=== PATIENT | female | born 1985 | race Caucasian/White ===

== ENCOUNTER 2017-01-02 16:56 | Emergency (ER) | payer MEDICAID, OTHER ==
[~2017-01-02] VITALS: Ht 167.6 cm; Wt 102.0 kg
[~2017-01-02 16:56] MED LIST: CITA20TA4 PO; LORA1TAB PO; PERC7.5T13 PO; REST30CA PO
[2017-01-02 16:59] VITALS: BP 128/83; PULSE 77; RESP 15; TEMP 98.6; O2SAT 98
[2017-01-02] MEDS ORDERED: TRAZ50TA12 PO (17:52)
[2017-01-02] MEDS ORDERED: LORA1TAB12 PO (17:52)
[2017-01-02] MEDS ORDERED: CITA40TA4 PO (17:52)
--- NOTE | 2017-01-02 18:08 | PD ---
HPI Chief Complaint: Fall Time Seen by Provider: 17:56 Travel History International Travel<30 days: No Contact w/Intl Traveler<30days: No Traveled to known affect area: No History of Present Illness HPI 31-year-old female complains of neck pain, back pain, right hip pain the right knee pain. Patient slipped and fell down on the right knee this afternoon. Patient denies loss of consciousness. Patient denies any headache. Patient complained of neck pain and back pain right hip pain and right knee pain. Patient denies any focal weakness and numbness of the extremity. Patient denies any chest pain or shortness of breath. Patient denies abdominal pain. PFSH Past Medical History Hx Anticoagulant Therapy: No Blood Disorders: No Anxiety: Yes Heart Rhythm Problems: No Cancer: Yes (Basal cell) Cardiac Catheterization: No Cardiovascular Problems: No High Cholesterol: No Chemotherapy: No Congestive Heart Failure: No Cerebrovascular Accident: No Diabetes: No Diminished Hearing: No Endocrine: No Gastrointestinal Disorders: Yes (Gastritis ) Genitourinary: No Headaches: Yes Heparin Induced Thrombocytopen: No Hypertension: No Musculoskeletal: No Neurologic: Yes Psychiatric: Yes Reproductive: No Respiratory: Yes (COPD) Immunizations Current: No Migraines: Yes Seizures: No Thyroid Disease: No Tetanus Vaccination: < 5 Years Influenza Vaccination: No ?: Not LMP: 12/21/16 : 3 Para: 3 Tubal Ligation: Yes Past Surgical History Abdominal Surgery: Yes (gall bladder removal) Cholecystectomy: Yes Coronary Artery Bypass Graft: No Gynecologic Surgery: Yes (tubal ligation) Other Surgery: Yes (Sinus) Family History Family Myocardial Infarction: Yes (FATHER X3) Social History Alcohol Use: No Tobacco Use: Yes (1/2 PPD) Substance Use: No Allergies-Medications (Allergen,Severity, Reaction): Coded Allergies: Levaquin (Verified Allergy, Severe, FACIAL EDEMA, 01/02/17) Reglan (Verified Allergy, Mild, ANXIETY, 01/02/17) Reported Meds & Prescriptions Reported Meds & Active Scripts Active Reported Trazodone (Trazodone HCl) 50 Mg Tab 50 Mg PO HS Citalopram (Citalopram Hydrobromide) 40 Mg Tab 40 Mg PO DAILY Lorazepam 1 Mg Tab 1 Mg PO DAILY PRN Review of Systems General / Constitutional: No: Fever Eyes: No: Visual changes HENT: No: Headaches Cardiovascular: No: Chest Pain or Discomfort Respiratory: No: Shortness of Breath Gastrointestinal: No: Abdominal Pain Genitourinary: No: Dysuria Musculoskeletal: Positive: Pain Skin: No Rash Neurologic: No: Weakness Psychiatric: No: Depression Endocrine: No: Polydipsia Hematologic/Lymphatic: No: Easy Bruising Physical Exam Narrative GENERAL: Well-nourished, well-developed patient. SKIN: Warm and dry. HEAD: Normocephalic. EYES: No scleral icterus. No injection or drainage. NECK: Supple, trachea midline. No JVD or lymphadenopathy. Patient had mild tenderness on palpation paraspinal areas cervical spine. No midline tenderness. CARDIOVASCULAR: Regular rate and rhythm without murmurs, gallops, or rubs. RESPIRATORY: Breath sounds equal bilaterally. No accessory muscle use. GASTROINTESTINAL: Abdomen soft, non-tender, nondistended. MUSCULOSKELETAL: Patient has mild diffuse tenderness of aspect the right hip joint, chest x-ray knee joint. Full range of motion of the hip and knee joint. Knee joints stable. BACK: Moderate tenderness on palpation low thoracic upper lumbar and lower lumbar area, without obvious deformity. No CVA tenderness. Neurologic exam normal. Data Data Last Documented VS Vital Signs Date Time Temp Pulse Resp B/P Pulse Ox O2 Delivery O2 Flow Rate FiO2 01/02/17 17:56 2 01/02/17 16:59 98.6 77 128/83 98 Orders Hip, Uni(Ap&Lat) W Ap Pelvis (01/02/17 18:01) Knee, Ltd (1 Or 2vws) (01/02/17 18:01) Spine, Cervical - Ltd (Ap&Lat) (01/02/17 18:01) Spine, Lumbar - Ltd (Ap & Lat) (01/02/17 18:01) Spine, Thoracic-Ap/Lat/Sw(3vw) (01/02/17 18:04) [facility] Medical Decision Making Medical Screen Exam Complete: Yes Emergency Medical Condition: Yes Interpretation(s) 1934 PM. X-ray cervical thoracic lumbar spine right hip and right knee shows no acute bony injury. Differential Diagnosis Differential diagnosis including strain, fracture, dislocation. Narrative Course 31-year-old female with complains of neck pain, back pain, right hip pain and right knee pain. Status post fall. Motrin 600 mg by mouth given. Diagnosis Primary Impression: Cervical strain, acute Qualified Code: S16.1XXA - Cervical strain, acute, initial encounter Additional Impressions: Strain of thoracic region Qualified Code: S29.019A - Strain of thoracic region, initial encounter Lumbar strain Qualified Code: S39.012A - Lumbar strain, initial encounter Strain of right knee Qualified Code: S86.911A - Strain of right knee, initial encounter Strain of right hip Qualified Code: S76.011A - Strain of right hip, initial encounter Patient Instructions: General Instructions Additional Instructions: Take medications as needed for pain. Follow-up with personal physician and orthopedist. Return if worse. Med/Other Pt SpecificInfo: Prescription(s) given Scripts Methocarbamol (Robaxin)750 Mg [id number] Mg PO QID #40 TAB Prov:Man Bowen MD 01/02/17 Meloxicam (Mobic)15 Mg Tab15 Mg PO DAILY #20 TAB Prov:Man Bowen MD 01/02/17 Disposition: 01 DISCHARGE HOME Condition: Stable Man Bowen MD Jan 02, 2017 18:08
--- NOTE | 2017-01-02 19:18 | RADHPO ---
EXAM DATE/TIME: 01/02/2017 18:27 [facility] COMPARISON: No previous studies available for comparison. INDICATIONS : Low back pain from fall MEDICAL HISTORY : None. SURGICAL HISTORY : None. ENCOUNTER: Initial ACUITY: 1 day PAIN SCORE: 8/10 LOCATION: Bilateral low back FINDINGS: Two view examination was performed. There are five non-rib bearing vertebral bodies. The vertebral bodies are in normal alignment without evidence of subluxation or scoliosis. The disc spaces are merritt ntained. The pedicles are intact. Bony mineralization is normal. No fracture is identified. CONCLUSION: Normal examination for a patient of this age. Pasha Randolph MD on January 02, 2017 at 19:15 Board Certified Radiologist. This report was verified electronically.
--- NOTE | 2017-01-02 19:20 | RADHPO ---
EXAM DATE/TIME: 01/02/2017 18:29 [facility] COMPARISON: No previous studies available for comparison. INDICATIONS : Fell, right hip area pain MEDICAL HISTORY : None. SURGICAL HISTORY : None. ENCOUNTER: Initial ACUITY: 1 day PAIN SCORE: 8/10 LOCATION: Right hip and pelvis FINDINGS: Examination of the right hip was performed with AP Pelvis. The primary and secondary trabecular alok adriana of the femoral neck is intact. The hip joint is of normal width without significant sclerosis or bony hypertrophy. The acetabulum is grossly intact. CONCLUSION: Normal examination for a patient of this age. Pasha Randolph MD on January 02, 2017 at 19:17 Board Certified Radiologist. This report was verified electronically.
--- NOTE | 2017-01-02 19:21 | RADHPO ---
EXAM DATE/TIME: 01/02/2017 18:34 [facility] COMPARISON: No previous studies available for comparison. INDICATIONS : Fell, right knee pain MEDICAL HISTORY : None. SURGICAL HISTORY : None. ENCOUNTER: Initial ACUITY: 1 day PAIN SCORE: 8/10 LOCATION: Right knee FINDINGS: Two view examination of the right knee demonstrates no evidence of fracture or dislocation. Bony min eralization is normal. The suprapatellar soft tissues have a normal configuration. CONCLUSION: Normal examination for a patient of this age. Pasha Randolph MD on January 02, 2017 at 19:19 Board Certified Radiologist. This report was verified electronically.
--- NOTE | 2017-01-02 19:21 | RADHPO ---
EXAM DATE/TIME: 01/02/2017 18:29 [facility] COMPARISON: No previous studies available for comparison. INDICATIONS : Fell, upper back pain MEDICAL HISTORY : None. SURGICAL HISTORY : None. ENCOUNTER: Initial ACUITY: 1 day PAIN SCORE: 8/10 LOCATION: Bilateral upper back FINDINGS: No fracture or subluxation seen of the thoracic spine. The thoracic kyphosis is mildly exaggerated. T here is very mild disc space narrowing and anterior osseous ridging centrally throughout. Vertebral b odies have normal height. CONCLUSION: 1. No fracture or subluxation of the thoracic spine. 2. Mild disc centered degenerative changes and exaggerated kyphosis. Shawn Cerrato MD on January 02, 2017 at 19:18 Board Certified Radiologist. This report was verified electronically.
--- NOTE | 2017-01-02 19:22 | RADHPO ---
EXAM DATE/TIME: 01/02/2017 18:39 [facility] COMPARISON: SPINE THORACIC AP/LAT/SW (3VW), January 02, 2017, 18:29. INDICATIONS : Fell, neck pain MEDICAL HISTORY : None. SURGICAL HISTORY : None. ENCOUNTER: Initial ACUITY: 1 day PAIN SCORE: 8/10 LOCATION: Bilateral neck FINDINGS: Two projection examination was performed. There is normal alignment and curvature of the vertebral b odies down to the level of C7. No evidence of fracture or subluxation. Vertebral body height is merritt ntained. The disc spaces are maintained. The prevertebral soft tissues are of normal thickness. Th e atlanto-axial articulation is intact. CONCLUSION: Normal radiographic appearance of the cervical spine. Shawn Cerrato MD on January 02, 2017 at 19:20 Board Certified Radiologist. This report was verified electronically.
[2017-01-02] MEDS ORDERED: MOBI15TA PO (19:40)
[2017-01-02] MEDS ORDERED: ROBA750T PO (19:40)
[2017-01-02] MEDS ORDERED: IBUPROFEN 600 MG TAB PO ONE (19:45)
== END 2017-01-02 19:55 | disposition home or self-care (01) ==
LOC: PHED 16:56 → PHEFT 19:55
DX: S16.1XXA Strain of muscle, fascia and tendon at neck level, initial encounter (principal); S29.019A Strain of muscle and tendon of unspecified wall of thorax, initial encounter; F17.210 Nicotine dependence, cigarettes, uncomplicated; W19.XXXA Unspecified fall, initial encounter
CPT/HCPCS: 72040; 72072; 72100; 73502; 73560; 99283; L0150

== ENCOUNTER 2017-03-11 19:00 | Observation (INO) | payer MEDICAID ==
[~2017-03-11] VITALS: Ht 167.6 cm; Wt 101.4 kg
[~2017-03-11 19:00] MED LIST changes: -CITA20TA4 PO; +CITA40TA4 PO; -LORA1TAB PO; +LORA1TAB12 PO; +MOBI15TA PO; -PERC7.5T13 PO; -REST30CA PO; +ROBA750T PO; +TRAZ50TA12 PO
[2017-03-11 19:24] VITALS: BP 135/73; PULSE 87; RESP 18; TEMP 97.8; O2SAT 96
[2017-03-11] MEDS ORDERED: MORPHINE SULFATE 8 MG/ML INJ IV PUSH ONE (19:45)
[2017-03-11] MEDS ORDERED: ONDANSETRON HCL 4 MG/2 ML VIAL IV PUSH ONE (19:45)
[2017-03-11] MEDS ORDERED: ASPIRIN 325 MG TAB PO ONE (19:45)
--- NOTE | 2017-03-11 19:48 | PD ---
HPI Chief Complaint: Chest Pain Time Seen by Provider: 19:20 Travel History International Travel<30 days: No Contact w/Intl Traveler<30days: No Traveled to known affect area: No History of Present Illness HPI This 32-year-old female is complaining of an onset of substernal chest pain around 4:00 this afternoon. She says she didn't feel well throughout the day. She is somewhat nauseated and had some headache. The chest pain started around 4. It is not pleuritic. It is been fairly persistent. She had similar pain around 6 months ago. She went to [facility] and had a cardiac catheter done. She believes that there was no blockage in her ejection fraction was 64% . She has not had pain since then until tonight. She does smoke cigarettes. She has significant family history of heart disease. She has a sister that has a defibrillator and a brother who at 52 of [place]. She has some mild radiation of the pain to the back. She is not short of breath. PFSH Past Medical History Hx Anticoagulant Therapy: No Blood Disorders: No Anxiety: Yes Heart Rhythm Problems: No Cancer: Yes (Basal cell) Cardiac Catheterization: Yes ([address]Lau Tony nielsen) Cardiovascular Problems: No High Cholesterol: No Chemotherapy: No Congestive Heart Failure: No Cerebrovascular Accident: No Diabetes: No Diminished Hearing: No Endocrine: No Gastrointestinal Disorders: Yes (Gastritis ) Genitourinary: No Headaches: Yes Heparin Induced Thrombocytopen: No Hypertension: No Musculoskeletal: No Neurologic: Yes Psychiatric: Yes Reproductive: No Respiratory: Yes (COPD) Immunizations Current: No Migraines: Yes Seizures: No Thyroid Disease: No Influenza Vaccination: No ?: Not LMP: 5-18-17 : 3 Para: 3 Tubal Ligation: Yes Past Surgical History Abdominal Surgery: Yes (gall bladder removal) Cholecystectomy: Yes Coronary Artery Bypass Graft: No Gynecologic Surgery: Yes (tubal ligation) Other Surgery: Yes (Sinus) Family History Family Myocardial Infarction: Yes (FATHER X3) Social History Alcohol Use: No Tobacco Use: Yes (/2 PPD) Substance Use: No Allergies-Medications (Allergen,Severity, Reaction): Coded Allergies: Levaquin (Verified Allergy, Severe, FACIAL EDEMA, 03/11/17) Reglan (Verified Allergy, Mild, ANXIETY, 03/11/17) Reported Meds & Prescriptions Reported Meds & Active Scripts Active Reported Citalopram (Citalopram Hydrobromide) 40 Mg Tab 40 Mg PO DAILY Lorazepam 1 Mg Tab 1 Mg PO DAILY PRN Review of Systems General / Constitutional: No: Fever, Chills Eyes: No: Diploplia, Blurred Vision HENT: Positive: Headaches Cardiovascular: Positive: Chest Pain or Discomfort, No: Palpitations Respiratory: No: Cough, Shortness of Breath Gastrointestinal: Positive: Nausea, No: Vomiting Genitourinary: No: Frequency Skin: No Rash, No Itching Hematologic/Lymphatic: No: Easy Bruising Physical Exam Narrative GENERAL: Well-developed female SKIN: Focused skin assessment warm/dry. HEAD: Atraumatic. Normocephalic. EYES: Pupils equal and round. No scleral icterus. No injection or drainage. ENT: No nasal bleeding or discharge. Mucous membranes pink and moist. NECK: Trachea midline. No JVD. CARDIOVASCULAR: Regular rate and rhythm. No murmur appreciated. There is no chest wall tenderness RESPIRATORY: No accessory muscle use. Clear to auscultation. Breath sounds equal bilaterally. GASTROINTESTINAL: Abdomen soft, non-tender, nondistended. Hepatic and splenic margins not palpable. MUSCULOSKELETAL: No obvious deformities. No clubbing. No cyanosis. No edema. NEUROLOGICAL: Awake and alert. No obvious cranial nerve deficits. Motor grossly within normal limits. Normal speech. PSYCHIATRIC: Appropriate mood and affect; insight and judgment normal. Data Data Last Documented VS Vital Signs Date Time Temp Pulse Resp B/P Pulse Ox O2 Delivery O2 Flow Rate FiO2 03/11/17 20:43 77 18 133/81 100 Room Air 03/11/17 19:24 97.8 Orders Electrocardiogram (03/11/17 19:41) Complete Blood Count With Diff (03/11/17 19:41) Basic Metabolic Panel (Bmp) (03/11/17 19:41) Troponin I (03/11/17 19:41) Prothrombin Time / Inr (Pt) (03/11/17 19:41) Act Partial Throm Time (Ptt) (03/11/17 19:41) Urinalysis - C+S If Indicated (03/11/17 19:41) Chest, Single Ap (03/11/17 19:41) Aspirin (Aspirin) (03/11/17 19:45) Ondansetron Inj (Zofran Inj) (03/11/17 19:45) Morphine Inj (Morphine Inj) (03/11/17 19:45) Potassium Chloride (Kcl) (03/11/17 20:15) Labs Laboratory Tests Test 03/11/17 03/11/17 19:20 20:00 White Blood Count 9.6 TH/MM3 Red Blood Count 4.76 MIL/MM3 Hemoglobin 13.8 GM/DL Hematocrit 40.0 % Mean Corpuscular Volume 84.1 FL Mean Corpuscular Hemoglobin 29.0 PG Mean Corpuscular Hemoglobin 34.5 % Concent Red Cell Distribution Width 13.8 % Platelet Count 208 TH/MM3 Mean Platelet Volume 9.5 FL Neutrophils (%) (Auto) 69.8 % Lymphocytes (%) (Auto) 20.2 % Monocytes (%) (Auto) 5.7 % Eosinophils (%) (Auto) 3.6 % Basophils (%) (Auto) 0.7 % Neutrophils # (Auto) 6.8 TH/MM3 Lymphocytes # (Auto) 1.9 TH/MM3 Monocytes # (Auto) 0.5 TH/MM3 Eosinophils # (Auto) 0.3 TH/MM3 Basophils # (Auto) 0.1 TH/MM3 CBC Comment DIFF FINAL Differential Comment Prothrombin Time 11.2 SEC Prothromb Time International 1.0 RATIO Ratio Activated Partial 25.9 SEC Thromboplast Time Sodium Level 140 MEQ/L Potassium Level 3.3 MEQ/L Chloride Level 106 MEQ/L Carbon Dioxide Level 26.0 MEQ/L Anion Gap 8 MEQ/L Blood Urea Nitrogen 10 MG/DL Creatinine 0.58 MG/DL Estimat Glomerular Filtration 120 ML/MIN Rate Random Glucose 99 MG/DL Calcium Level 8.6 MG/DL Troponin I LESS THAN 0.02 NG/ML Urine Color PINK Urine Turbidity CLOUDY Urine pH 7.0 Urine Specific [place] 1.019 Urine Protein TRACE mg/dL Urine Glucose (UA) NEG mg/dL Urine Ketones NEG mg/dL Urine Occult Blood LARGE Urine Nitrite NEG Urine Bilirubin NEG Urine Leukocyte Esterase MOD Urine RBC 25-49 /hpf Urine WBC 3-5 /hpf Urine Squamous Epithelial 0-5 /hpf Cells Urine Mucus FEW /lpf Microscopic Urinalysis Comment CULT NOT INDICATED MDM Medical Decision Making Medical Screen Exam Complete: Yes Emergency Medical Condition: Yes Medical Record Reviewed: Yes Differential Diagnosis Differential includes chest pain, coronary artery disease, GERD, chest wall pain , Narrative Course EKG shows sinus rhythm. He is an inverted T-wave in III and F. 33 that he is also inverted as it is in V4. There are no sebastian elevations. Her troponin is normal. Patient is at some risk as she has significant family history and is a smoker. Diagnosis Primary Impression: Chest pain Qualified Code: R07.9 - Chest pain, unspecified type Samuel Mccullough MD March 11, 2017 19:48
[2017-03-11 19:53] LABS: AUTOMATED NEUTROPHIL # 6.8 TH/MM3 (1.8-7.7); BASOPHIL # 0.1 TH/MM3 (0-0.2); BASOPHIL % 0.7 % (0.0-2.0); EOSINOPHIL # 0.3 TH/MM3 (0-0.4); EOSINOPHIL % 3.6 % (0.0-4.0); HEMO FLAGS DIFF FINAL; LYMPH % 20.2 % (9.0-44.0); LYMPHOCYTE # 1.9 TH/MM3 (1.0-4.8); MEAN CELL VOLUME 84.1 FL (80.0-100.0); MEAN CORPUSCULAR HGB CONC 34.5 % (32.0-36.0); MONO % 5.7 % (0.0-8.0); NEUT % 69.8 % (16.0-70.0); PLATELET COUNT 208 TH/MM3 (150-450); RED BLOOD COUNT 4.76 MIL/MM3 (4.00-5.30); RED CELL DISTRIBUTION WIDTH 13.8 % (11.6-17.2); WHITE BLOOD COUNT 9.6 TH/MM3 (4.0-11.0)
[2017-03-11 20:01] LABS: CHLORIDE 106 MEQ/L (98-107); POTASSIUM 3.3 MEQ/L (3.5-5.1); SODIUM (NA) 140 MEQ/L (136-145)
[2017-03-11 20:04] LABS: ANION GAP 8 MEQ/L (5-15); BLOOD UREA NITROGEN 10 MG/DL (7-18)
[2017-03-11 20:06] LABS: APTT (PATIENT) 25.9 SEC (24.3-30.1); PROTHROMBIN TIME - PATIENT 11.2 SEC (9.8-11.6)
[2017-03-11 20:07] LABS: GLOMERULAR FILTRATION RATE 120 ML/MIN (>89)
[2017-03-11] MEDS ORDERED: POTASSIUM CHLORIDE 20 MEQ CONTROLLED RELEASE TAB PO ONE (20:15)
[2017-03-11 20:17] LABS: BLOOD, URINE LARGE (NEG); GLUCOSE,URINE NEG (NEG); KETONE, URINE NEG (NEG); NITRITE,URINE NEG (NEG)
--- NOTE | 2017-03-11 20:19 | RADHPO ---
EXAM DATE/TIME: 03/11/2017 20:07 [facility] COMPARISON: CHEST PA & LAT, December 16, 2015, 10:44. INDICATIONS : Chest pain. MEDICAL HISTORY : None. SURGICAL HISTORY : None. ENCOUNTER: Initial ACUITY: 1 day PAIN SCORE: 7/10 LOCATION: Bilateral chest FINDINGS: A single view of the chest demonstrates the lungs to be symmetrically aerated without evidence of mas s, infiltrate or effusion. The cardiomediastinal contours are unremarkable. Osseous structures are intact. CONCLUSION: No evidence of acute cardiopulmonary disease. Shawn Cerrato MD on March 11, 2017 at 20:17 Board Certified Radiologist. This report was verified electronically.
[2017-03-11 20:25] LABS: URINE COLOR PINK (YELLW/STRAW)
[2017-03-11 20:27] LABS: MUCUS URINE FEW /lpf (OCC)
[2017-03-11 20:28] LABS: COMMENT (UR) CULT NOT INDICATED; CULTURE IF INDICATED CULT NOT INDICATED; SQUAMOUS EPITHELIAL CELL URINE 0-5 /hpf (0-5)
[2017-03-11 20:43] VITALS: BP 133/81; PULSE 77; RESP 18; O2SAT 100
[2017-03-11] MEDS ORDERED: TEMAZEPAM 15 MG CAP PO PRN (21:15)
[2017-03-11] MEDS ORDERED: SODIUM CHLORIDE 0.9% FLUSH 10 ML FLUSH IV FLUSH PRN (21:15)
[2017-03-11 22:49] VITALS: O2SAT 96
[2017-03-11 23:00] VITALS: PULSE 73
[2017-03-11] MEDS: ONDANSETRON HCL 4 MG/2 ML VIAL IV PRN (23:21)
[2017-03-11] MEDS: MORPHINE SULFATE 4 MG/ML INJ IV PRN (23:27)
[2017-03-11 23:41] VITALS: BP 133/65
[2017-03-11 23:53] LABS: CREATINE KINASE 81 U/L (26-192)
[2017-03-12] VITALS: BP 136/85; PULSE 76; RESP 16; TEMP 97.9; O2SAT 96
[2017-03-12 02:13] LABS: CREATINE KINASE 78 U/L (26-192)
[2017-03-12] MEDS: MORPHINE SULFATE 4 MG/ML INJ IV PRN ×2 (03:59→08:35)
[2017-03-12 04:00] VITALS: BP 121/75; PULSE 65; RESP 18; TEMP 98.8; O2SAT 97
[2017-03-12 08:00] VITALS: BP 140/69; PULSE 78; RESP 20; TEMP 97.6; O2SAT 99
[2017-03-12] MEDS ORDERED: ACETAMINOPHEN/HYDROcodone 325 MG/7.5 MG TAB PO PRN (08:45)
[2017-03-12] MEDS ORDERED: ACETAMINOPHEN 500 MG CPLT PO PRN (08:45)
[2017-03-12] MEDS ORDERED: NITROGLYCERIN 0.4 MG SL 25 TABS/BTL SL PRN (08:45)
[2017-03-12 08:46] LABS: POTASSIUM 3.8 MEQ/L (3.5-5.1)
--- NOTE | 2017-03-12 08:46 | HHI.HP ---
[facility] Service [place] [facility] Primary Care Physician Rigo Reyes M.D. Admission Diagnosis CHEST PAIN Diagnoses: (1) Chest pain Diagnosis: Principal (2) Hypokalemia Diagnosis: Principal (3) Tobacco use Diagnosis: Principal Chief Complaint: chest pain Travel History International Travel<30 Days: No Contact w/Intl Traveler <30 Da: No Traveled to Known Affected Are: No History of Present Illness Written by Adrianna Ross PA-C acting as scribe for Dr. Dasilva on 03/12/17 at ~ 0830. 32-year-old female with history of anxiety, gastritis, COPD, and tobacco use presents with complaint of chest pain and was admitted to chest pain center. The patient states that yesterday morning she awoke and felt tired and didn't feel good. She states she was dizzy and slept until about 2 PM. She states when she awoke she had tightness in her left chest. She states she took an Ativan and although she denies relief with it she states she felt okay and at 3 PM got ready for work. 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 Pain is intermittent. She states episodes of chest pain lasted a couple minutes. She denies association with exertion. She did experience shortness of breath and nausea as well as tingling in her left arm. She denies any recent fevers, cough or cold symptoms, vomiting, or diarrhea. She states her pain returned one hour ago (0730) this morning and currently she has 8/10 pain. She did not receive any nitroglycerin in the ED. She states morphine relieves her pain for a couple of hours but then it returns. She states pain is worse when she lies on her back, but denies pain being reproducible. Pain is non-pleuritic. Previous cardiac workup includes recent heart catheterization 6 months ago at [facility] by Dr. Al when she was hospitalized there (does not follow with Dr. Al regularly), negative nuclear stress test in 12/2012, and Holter monitor 6 years ago when she was . She has a significant family history of heart disease. Review of Systems Except as stated in HPI: all other systems reviewed are Neg Past Family Social History Past Medical History Anxiety Gastritis COPD Basal cell carcinoma Past Surgical History Cholecystectomy Tubal ligation Sinus surgery Lateral release of bilateral knees Reported Medications Citalopram (Citalopram Hydrobromide) 40 Mg Tab 40 Mg PO DAILY Lorazepam 1 Mg Tab 1 Mg PO DAILY PRN Allergies: Coded Allergies: Levaquin (Verified Allergy, Severe, FACIAL EDEMA, 03/11/17) Reglan (Verified Allergy, Mild, ANXIETY, 03/11/17) Family History Father: NE in his 50s; in his 70s. Brother: at age 52 from coronary artery disease. Sister: Currently 47 years old and has a pacemaker and defibrillator and is on the heart transplant list. Social History Patient smokes half pack per day of cigarettes. Started smoking at age of 16. She denies any alcohol or illicit drug use. Physical Exam Vital Signs Vital Signs Date Time Temp Pulse Resp B/P Pulse Ox O2 Delivery O2 Flow Rate FiO2 03/12/17 04:00 98.8 65 18 121/75 97 03/12/17 00:00 97.9 76 16 136/85 96 03/11/17 23:41 85 18 133/65 98 03/11/17 23:00 73 03/11/17 22:49 96 21 03/11/17 20:43 77 18 133/81 100 Room Air 03/11/17 19:59 18 03/11/17 19:29 87 18 96 Room Air 03/11/17 19:24 97.8 87 18 135/73 96 Physical Exam GENERAL: This is an obese, well-developed patient, in no apparent distress. SKIN: No rashes, ecchymoses or lesions. Warm and dry. HEAD: Atraumatic. Normocephalic. EYES: No scleral icterus. No injection or drainage. CHEST: No reproducible tenderness over the anterior chest. CARDIOVASCULAR: Regular rate and rhythm without murmurs, gallops, or rubs. RESPIRATORY: Clear to auscultation. Breath sounds equal bilaterally. No wheezes , rales, or rhonchi. GASTROINTESTINAL: Normoactive bowel sounds. Abdomen soft, non-tender, nondistended. No guarding. MUSCULOSKELETAL: No tenderness over the L upper back. No lower extremity edema bilaterally. NEUROLOGICAL: Awake and alert. Motor grossly within normal limits. Normal speech. PSYCHIATRIC: Normal mood and affect. Laboratory Laboratory Tests Test 03/11/17 03/11/17 03/11/17 03/12/17 19:20 20:00 23:13 01:35 White Blood Count 9.6 Red Blood Count 4.76 Hemoglobin 13.8 Hematocrit 40.0 Mean Corpuscular Volume 84.1 Mean Corpuscular Hemoglobin 29.0 Mean Corpuscular Hemoglobin 34.5 Concent Red Cell Distribution Width 13.8 Platelet Count 208 Mean Platelet Volume 9.5 Neutrophils (%) (Auto) 69.8 Lymphocytes (%) (Auto) 20.2 Monocytes (%) (Auto) 5.7 Eosinophils (%) (Auto) 3.6 Basophils (%) (Auto) 0.7 Neutrophils # (Auto) 6.8 Lymphocytes # (Auto) 1.9 Monocytes # (Auto) 0.5 Eosinophils # (Auto) 0.3 Basophils # (Auto) 0.1 CBC Comment DIFF FINAL Differential Comment Prothrombin Time 11.2 Prothromb Time International 1.0 Ratio Activated Partial 25.9 Thromboplast Time Sodium Level 140 Potassium Level 3.3 Chloride Level 106 Carbon Dioxide Level 26.0 Anion Gap 8 Blood Urea Nitrogen 10 Creatinine 0.58 Estimat Glomerular Filtration 120 Rate Random Glucose 99 Calcium Level 8.6 Troponin I LESS THAN 0.02 LESS THAN 0.02 LESS THAN 0.02 Urine Color PINK Urine Turbidity CLOUDY Urine pH 7.0 Urine Specific [place] 1.019 Urine Protein TRACE Urine Glucose (UA) NEG Urine Ketones NEG Urine Occult Blood LARGE Urine Nitrite NEG Urine Bilirubin NEG Urine Leukocyte Esterase MOD Urine RBC 25-49 Urine WBC 3-5 Urine Squamous Epithelial 0-5 Cells Urine Mucus FEW Microscopic Urinalysis Comment CULT NOT INDICATED Total Creatine Kinase 81 78 Result Diagram: 03/11/17191903/11/171919 Imaging Last Impressions Chest X-Ray 03/11/171940 Signed Impressions: Service Date/Time: Saturday, March 11, 2017 20:07 - CONCLUSION: No evidence of acute cardiopulmonary disease. Shawn Cerrato MD Assessment and Plan Assessment and Plan 32-year-old female with: Chest pain: Tightness left chest, intermittent, relieved with morphine but returns. EKGs 3 with sinus rhythm; T-wave inversion in inferior and anterior leads but appears similar to EKG from 04/18/13. Troponin 3 less than 0.02. CBC unremarkable. Chest x-ray with no acute disease. PERC satisfied. No evidence of pericarditis. Per patient she had a heart catheterization 6 months ago which was normal. She had a nuclear stress test performed on 01/12/13 with no evidence of ischemia (after patient was unable to complete an ETT due to dizziness and inability to continue walking per EMR). -Telemetry reviewed with no acute events -Order nitroglycerin sublingual prn chest pain -[place]/morphine prn pain -Continue 325 mg daily aspirin -Patient does not have a regular machine plate stacker with whom she follows. Will attempt to obtain cath records from [facility], and then contact [facility] machine plate stacker for further advisement. -~0930: RN states patient's pain is increasing although does not appear in distress. Nitro administered; pain 9-->7/10. Toradol 30 mg IV also ordered with relief of pain 7-->5/10. New EKG with same inferior and anterior T wave changes. Hypokalemia: Mild 3.3-->3.8 s/p 20 mEq by mouth KCl the ED. Magnesium 2.4. Tobacco use: Patient is advised of the risks of smoking including NE, stroke, PVD, cancer, COPD. Counseled on cessation but patient states she is not ready to quit as she has tried before. GI prophylaxis: Pepcid 20 bid DVT prevention: SCDs. Spoke with Dr. Hopkins, chest pain center machine plate stacker at ~1115. The patient confirms that she was told there were no blockages on her cardiac catheterization 6 months ago, but we were unable to obtain cath report due to it being the weekend. Dr. Hopkins does not advise stress testing or further workup. Patient advised that she needs to carry her cath report with her when she goes to the hospital. She is advised to eat a heart healthy diet. She is advised to exercise for cardiac health as well as coping mechanism for anxiety as she feels her Xanax is not working although denies increased stress/anxiety recently. She is advised to address other anxiety medication with her PCP this week. Patient is advised to take ibuprofen or Aleve for chest pain as it may be inflammatory but to use OTC dosing as she has history of gastritis. She is advised she can alternate with Tylenol and take PPI or Pepcid/Zantac for prophylaxis while taking NSAIDs. Advised to avoid Nicotine. She is advised to return to hospital for emergent symptoms. Discharge disposition: Discharge home in fair condition. Diet: Heart healthy, GERD, weight management. Activity: Regular. No lifting/bending. Medications: Resume home medications. Follow up: PCP Dr. Reyes this week. This note was transcribed by scribe [Adrianna Ross]. I, Dr. Jean-Paul Dasilva personally performed the history, physical exam, and medical decision making; and confirmed the accuracy of the information in the transcribed note. Authenticated by Dr. Jean-Paul Dasilva on 03/12/17 at 13:20. Discussed Condition With patient Problem Qualifiers (1) Chest pain: Qualified Code: R07.9 - Chest pain, unspecified type Adrianna Ross March 12, 2017 08:46 Jean-Paul Dasilva MD March 12, 2017 13:20
[2017-03-12 08:50] LABS: MAGNESIUM 2.4 MG/DL (1.5-2.5)
[2017-03-12 08:58] LABS: BETA HCG QUANT LESS THAN 1 MIU/ML (0-5)
[2017-03-12] MEDS ORDERED: SODIUM CHLORIDE 0.9% FLUSH 10 ML FLUSH IV FLUSH SCH (09:00)
[2017-03-12] MEDS ORDERED: ASPIRIN 325 MG TAB PO SCH (09:00)
[2017-03-12] MEDS: ONDANSETRON HCL 4 MG/2 ML VIAL IV PRN (09:16)
[2017-03-12] MEDS ORDERED: FAMOTIDINE 20 MG TAB PO SCH (10:00)
[2017-03-12] MEDS ORDERED: KETOROLAC TROMETHAMINE 30 MG/ML (IVP) VIAL IV PUSH ONE (10:00)
--- NOTE | 2017-03-12 11:40 | HHI.DCPOC ---
Discharge Care Plan Diagnosis: (1) Chest pain (2) Hypokalemia Your Health Problems Are: Chest Pain Goals to Promote Your Health * To prevent worsening of your condition and complications * To maintain your health at the optimal level Directions to Meet Your Goals Take your medications as prescribed Follow your dietary instruction Follow activity as directed Keep your appointments as scheduled Take your immunizations and boosters as scheduled If your symptoms worsen call your PCP, if no PCP go to Urgent Care Center or Emergency Room Smoking is Dangerous to Your Health. Avoid second hand smoke Call the 24-hour hour crisis hotline for domestic abuse at Adrianna Ross March 12, 2017 11:40
--- NOTE | 2017-03-12 16:23 | EKG ---
Date Performed: 03/11/2017 Time Performed: 19:09:46 PTAGE: 32 years EKG: Sinus rhythm . Inferior and anterior T wave changes may be due to myocardial ischemia Abnormal ECG PREVIOUS TRACING : 04/18/2013 13.50 Compared to prior tracing no significant change DOCTOR: Robyn Arnold Interpretating Date/Time 03/12/2017 16:23:02
--- NOTE | 2017-03-12 16:26 | EKG ---
Date Performed: 03/12/2017 Time Performed: 01:14:36 PTAGE: 32 years EKG: Sinus rhythm Anterior T wave changes are abnormal Abnormal ECG PREVIOUS TRACING : 03/11/2017 22.19 Compared to prior tracing no significant change DOCTOR: Robyn Arnold Interpretating Date/Time 03/12/2017 16:24:29
--- NOTE | 2017-03-12 16:26 | EKG ---
Date Performed: 03/11/2017 Time Performed: 22:19:14 PTAGE: 32 years EKG: Sinus rhythm Inferior and anterior T wave changes are abnormal Abnormal ECG PREVIOUS TRACING : 03/11/2017 19.09 Compared to prior tracing no significant change DOCTOR: Robyn Arnold Interpretating Date/Time 03/12/2017 16:24:08
--- NOTE | 2017-03-13 17:00 | EKG ---
Date Performed: 03/12/2017 Time Performed: 10:36:22 PTAGE: 32 years EKG: Sinus rhythm Anterior T wave changes are abnormal Abnormal ECG PREVIOUS TRACING : 03/12/2017 01.14 Compared to prior tracing no significant change DOCTOR: Robyn Arnold Interpretating Date/Time 03/13/2017 16:59:24
== END 2017-03-12 15:06 | disposition home or self-care (01) ==
LOC: PHED 19:00 → PHEDA 21:13 → PH3A 23:54
PROVIDERS: ADMIT Hospitalist; ATTEND Hospitalist
DX: R07.89 Other chest pain (principal); E87.6 Hypokalemia; R07.2 Precordial pain; R51 Headache; R11.0 Nausea; J44.9 Chronic obstructive pulmonary disease, unspecified; G43.909 Migraine, unspecified, not intractable, without status migrainosus; F17.210 Nicotine dependence, cigarettes, uncomplicated; Z82.49 Family history of ischemic heart disease and other diseases of the circulatory system; K29.70 Gastritis, unspecified, without bleeding
CPT/HCPCS: 71010; 80048; 81001; 82550; 83735; 84132; 84484; 84702; 85025; 85610; 85730; 93005; 96374; 96375; 99285; G0378; J1885; J2270; J2405

== ENCOUNTER 2017-06-01 17:05 | Emergency (ER) | payer MEDICAID ==
[~2017-06-01 17:05] MED LIST changes: -MOBI15TA PO; -ROBA750T PO; -TRAZ50TA12 PO
[2017-06-01 17:17] VITALS: BP 142/65; PULSE 108; RESP 20; TEMP 100; O2SAT 98
--- NOTE | 2017-06-01 18:06 | PD ---
HPI Chief Complaint: Abdominal Pain Time Seen by Provider: 18:02 Travel History International Travel<30 days: No Contact w/Intl Traveler<30days: No Traveled to known affect area: No History of Present Illness HPI Patient is a 32-year-old female presents with a young daughter for complaints of nausea vomiting abdominal cramping and diarrhea. Patient since become concerned because she had antibiotics approximately 2 weeks ago prior to having elective surgery on her right shoulder. She states which is preoperative antibiotics. She does not know exactly what antibiotic she received. She states just some mild abdominal cramping. Patient states that her symptoms started a few days ago no fevers. States his stool is brown and just liquidy. States her daughter had symptoms first and passed it to her. She denies blood in stool or emesis. PFSH Past Medical History Hx Anticoagulant Therapy: No Blood Disorders: No Anxiety: Yes Heart Rhythm Problems: No Cancer: Yes (Basal cell) Cardiac Catheterization: Yes Cardiovascular Problems: Yes High Cholesterol: No Chemotherapy: No Congestive Heart Failure: No Cerebrovascular Accident: No Diabetes: No Diminished Hearing: No Endocrine: No Gastrointestinal Disorders: Yes (Gastritis ) Genitourinary: No Headaches: Yes Heparin Induced Thrombocytopen: No Hypertension: No Musculoskeletal: No Neurologic: No Psychiatric: Yes Reproductive: No Respiratory: Yes (COPD) Immunizations Current: No Migraines: Yes Seizures: No Thyroid Disease: No Tetanus Vaccination: < 5 Years Influenza Vaccination: No ?: Unknown LMP: MAY 13 TUBAL : 3 Para: 3 Tubal Ligation: Yes Past Surgical History Abdominal Surgery: Yes (gall bladder removal) Cholecystectomy: Yes Coronary Artery Bypass Graft: No Gynecologic Surgery: Yes (tubal ligation) Other Surgery: No (Sinus) Family History Family Myocardial Infarction: Yes (FATHER X3) Social History Alcohol Use: No Tobacco Use: Yes (1/2 PPD) Substance Use: No Allergies-Medications (Allergen,Severity, Reaction): Coded Allergies: Levaquin (Verified Allergy, Severe, FACIAL EDEMA, 03/11/17) Reglan (Verified Allergy, Mild, ANXIETY, 03/11/17) Reported Meds & Prescriptions Reported Meds & Active Scripts Active Flagyl (Metronidazole) 500 Mg Tab 500 Mg PO BID 10 Days Zofran Odt (Ondansetron Odt) 4 Mg Tab 4 Mg SL Q6HR PRN Reported Oxycodone (Oxycodone HCl) 5 Mg Cap 5 Mg PO Q6H PRN Review of Systems Except as stated in HPI: all other systems reviewed are Neg Physical Exam Narrative GENERAL: Well-developed well-nourished no obvious distress SKIN: Focused skin assessment warm/dry. HEAD: Atraumatic. Normocephalic. EYES: Pupils equal and round. No scleral icterus. No injection or drainage. ENT: No nasal bleeding or discharge. Mucous membranes pink and moist. NECK: Trachea midline. No JVD. CARDIOVASCULAR: Regular rate and rhythm. No murmur appreciated. RESPIRATORY: No accessory muscle use. Clear to auscultation. Breath sounds equal bilaterally. GASTROINTESTINAL: Abdomen soft, non-tender, nondistended. Hepatic and splenic margins not palpable. MUSCULOSKELETAL: No obvious deformities. No clubbing. No cyanosis. No edema. NEUROLOGICAL: Awake and alert. No obvious cranial nerve deficits. Motor grossly within normal limits. Normal speech. PSYCHIATRIC: Appropriate mood and affect; insight and judgment normal. Data Data Last Documented VS Vital Signs Date Time Temp Pulse Resp B/P Pulse Ox O2 Delivery O2 Flow Rate FiO2 06/01/17 19:22 99.1 78 18 122/71 96 Room Air Orders Ondansetron Odt (Zofran Odt) (06/01/17 18:15) Urinalysis - C+S If Indicated (06/01/17 18:13) Ed Urine Pregnancytest Poc (06/01/17 18:13) Labs Laboratory Tests Test 06/01/17 19:00 Urine Color YELLOW Urine Turbidity CLEAR Urine pH 6.0 Urine Specific [place] 1.028 Urine Protein NEG mg/dL Urine Glucose (UA) NEG mg/dL Urine Ketones NEG mg/dL Urine Occult Blood SMALL Urine Nitrite NEG Urine Bilirubin NEG Urine Leukocyte Esterase NEG Urine RBC 4-9 /hpf Urine WBC 3-5 /hpf Urine Squamous Epithelial > 8 /hpf Cells Urine Bacteria OCC /hpf Microscopic Urinalysis Comment CULT NOT INDICATED MDM Medical Decision Making Medical Screen Exam Complete: Yes Emergency Medical Condition: Yes Differential Diagnosis colitis, gastritis, gastroenteritis, C. difficile colitis Narrative Course patient roomed emerged Department, not , no urinary tract infection. This patient was on antibiotics recently needs to be considered for C. difficile colitis. Will be placed on. Flagyl. However I think this is a long shot given the patient could not provide a stool sample for C. difficile in the emergency department as well as her daughter is ill as well with similar symptoms and has not been on antibiotics. I explained this the patient she is agreeable for a trial. Recommended symptomatic management with by mouth fluids and follow-up with primary care physician. She is stable for discharge. Diagnosis Primary Impression: Gastroenteritis Med/Other Pt SpecificInfo: Prescription(s) given Scripts Metronidazole (Flagyl)500 Mg [id number] Mg PO BID 10 Days Ref 0 Prov:Keith Corbett MD 06/01/17 Ondansetron Odt (Zofran Odt)4 Mg Tab4 Mg SL Q6HR PRN (Nausea/Vomiting) #20 TAB Ref 0 Prov:Keith Corbett MD 06/01/17 Disposition: 01 DISCHARGE HOME Condition: Stable Keith Corbett MD Jun 01, 2017 18:06
[2017-06-01] MEDS ORDERED: ONDANSETRON ODT 4 MG TAB PO ONE (18:15)
[2017-06-01] MEDS ORDERED: OXYC1CAP PO (18:16)
[2017-06-01 19:08] LABS: BLOOD, URINE SMALL (NEG); GLUCOSE,URINE NEG (NEG); KETONE, URINE NEG (NEG); NITRITE,URINE NEG (NEG)
[2017-06-01 19:12] LABS: URINE COLOR YELLOW (YELLW/STRAW)
[2017-06-01 19:14] LABS: BACTERIA, URINE OCC /hpf; COMMENT (UR) CULT NOT INDICATED; CULTURE IF INDICATED CULT NOT INDICATED; SQUAMOUS EPITHELIAL CELL URINE > 8 /hpf (0-5)
[2017-06-01 19:22] VITALS: BP 122/71; PULSE 78; RESP 18; TEMP 99.1; O2SAT 96
[2017-06-01] MEDS ORDERED: ZOFR4TAB3 SL (19:51)
[2017-06-01] MEDS ORDERED: METR-1 PO (19:51)
== END 2017-06-01 20:07 | disposition home or self-care (01) ==
LOC: PHED 17:05
DX: K52.9 Noninfective gastroenteritis and colitis, unspecified (principal); F17.200 Nicotine dependence, unspecified, uncomplicated; Z86.59 Personal history of other mental and behavioral disorders; Z85.828 Personal history of other malignant neoplasm of skin; Z86.79 Personal history of other diseases of the circulatory system; Z87.19 Personal history of other diseases of the digestive system; Z87.09 Personal history of other diseases of the respiratory system; Z86.69 Personal history of other diseases of the nervous system and sense organs
CPT/HCPCS: 81001; 84703; 99284

== ENCOUNTER 2018-04-18 19:21 | Inpatient (IN) ==
[2018-04-23 05:55] VITALS: RESP 16
[2018-04-23] MEDS ORDERED: Acetaminophen 325 MG Tablet PO PRN (08:37)
[2018-04-23] MEDS ORDERED: Aluminum/Magnesium/Simethacone Susp 30 ML UDC PO PRN (08:38)
[2018-04-23] MEDS ORDERED: LORazepam 1 MG Tablet PO PRN (08:45)
[2018-04-23] MEDS ORDERED: Lactobacillus Acidophilus/L. Spores Tablet ONE (08:59)
[2018-04-23] MEDS ORDERED: Amoxicillin/Clavulanate 875/125 MG Tablet ONE (08:59)
[2018-04-23] MEDS ORDERED: Folic Acid 1 MG Tablet ONE (08:59)
[2018-04-23] MEDS ORDERED: Zolpidem Tartrate 5 MG Tablet PO PRN (09:00)
[2018-04-23] MEDS ORDERED: Acetaminophen 325 MG Tablet ONE (09:00)
[2018-04-23] MEDS ORDERED: Topiramate 25 MG Tablet ONE (09:02)
[2018-04-23] MEDS: Lactobacillus Acidophilus/L. Spores Tablet PO SCH ×2 (11:13→20:31)
[2018-04-23] MEDS: Folic Acid 1 MG Tablet PO SCH (11:14)
[2018-04-23] MEDS: Topiramate 25 MG Tablet PO SCH ×2 (11:53→20:31)
[2018-04-23] MEDS: Amoxicillin/Clavulanate 875/125 MG Tablet PO SCH ×2 (12:56→20:30)
[2018-04-23] MEDS: Multivitamin/Minerals Therapeutic Tablet PO SCH (12:57)
--- NOTE | 2018-04-23 14:32 | P.PNPSY ---
Subjective Remarks: Patient was seen and case discussed with nursing. Patient is bright and cheerful during the interview. He is focused on discharge. She is behaving well on the unit. She is quite social today. She is describing her mood as 10 out of 10. Insight remains poor concerning her overdose with her claiming it was not a suicide attempt and not understanding that taking 2 handfuls of pills is not just to to "calm her down." Today, she denies suicidal or homicidal ideation intent or plan. Compliant with medications Mental Status Examination Appearance: Appropriate Consciousness: Alert Orientation: x4 Motor Activity: Normal gait Speech: Pressured, Rapid Language: Adequate Fund of Knowledge: Adequate Attention and Concentration: Adequate Memory: Unremarkable Mood: Appropriate Affect: Appropriate Thought Process & Associations: Intact Thought Content: Appropriate Hallucination Type: None Delusion Type: None Suicidal Ideation: No Suicidal Plan: No Suicidal Intention: No Homicidal Ideation: No Homicidal Plan: No Homicidal Intention: No Insight: Poor Judgment: Poor Assessment and Plan - Assessment (1) Adjustment disorder with other symptoms Code(s): F43.29 - Adjustment disorder with other symptoms Status: Acute - Plan Plan: Estimated LOS: [] days Continue current treatment plan Justification for Continued Inpatient Stay: Patient would decompensate in a less restrictive setting
[2018-04-23] MEDS ORDERED: QUEtiapine 100 MG Tablet PO SCH (21:00)
[2018-04-24] MEDS: Lactobacillus Acidophilus/L. Spores Tablet PO SCH (09:39)
[2018-04-24] MEDS: Folic Acid 1 MG Tablet PO SCH (09:39)
[2018-04-24] MEDS: Multivitamin/Minerals Therapeutic Tablet PO SCH (09:39)
[2018-04-24] MEDS: Topiramate 25 MG Tablet PO SCH (09:39)
[2018-04-24] MEDS: Amoxicillin/Clavulanate 875/125 MG Tablet PO SCH (09:40)
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
[2018-04-25 13:07] VITALS: BP 92/55; PULSE 68; TEMP 97.5
[2018-04-25 13:19] VITALS: O2SAT 98
== END 2018-04-24 18:30 | disposition home or self-care (01) ==
LOC: H260 04-19 17:32
PROVIDERS: ADMIT Student in an Organized Health Care Education/Training Program; ATTEND Student in an Organized Health Care Education/Training Program